=== PATIENT | male | born 1955 | race Caucasian/White ===

== ENCOUNTER → 2020-08-06 | Outpatient (CLI) | payer MEDICARE, BC, OTHER ==
[~2020-08-06] MED LIST: APIX5TAB3 PO; ATOR40TA59 PO; MELO15TA23 PO; SOTA80TA48 PO; TEST5GEL TP
== END ==
LOC: LAB 09:30
PROVIDERS: ATTEND Nurse Anesthetist, Certified Registered
DX: Z01.812 Encounter for preprocedural laboratory examination (principal); Z86.010 Personal history of colon polyps; Z20.828 Contact with and (suspected) exposure to other viral communicable diseases
CPT/HCPCS: U0003

== ENCOUNTER → 2020-08-10 | Day surgery (SDC) | payer MEDICARE, BC, OTHER ==
[~2020-08-10] MED LIST changes: +IPRATRPIUM/ALBUTEROL 0.5/2.5MG 3 ML NEBU. NEB PRN; +IV RINGERS SOLUTION,LACTATED 1,000 ML IV SCH; +LIDOCAINE 2% PF 5 ML VIAL. ONE; +MIDAZOLAM HCL PF 2 MG/2 ML VIAL. IV ONE; +PROPOFOL 10,000 MCG/ML (20ML) VIAL IV ONE
[2020-08-10 08:15] VITALS: BP 121/78
--- NOTE | 2020-08-16 09:06 | PATHOLOGY ---
[facility] Accession Number: [id number] . 01 Material submitted: . colon - RANDOM COLON BIOPSIES . 01 Clinical history: . PREVIOUS HX POLYPS . 02 Diagnosis: Colonic mucosa, random colon biopsies: - No significant pathologic abnormalities. . (JPM:mm; 08/13/2020) [facility] 08/13/2020 1710 Local . 02 Comment: Sections of the random colon biopsy reveal multiple segments of colonic mucosa containing several, focally hyperplastic mucosal-associated lymphoid aggregates. There is no evidence of a chronic destructive colitis, lymphocytic colitis, or collagenous colitis. . (JPM:mml; 08/13/2020) . 02 Electronically signed: . Christiano Plaza MD, Pathologist NPI- [id number] . 01 Gross description: . Received in formalin labeled "Travis Frost, random colon" are multiple coleman-brown soft tissue fragments measuring in aggregate 2.2 x 0.5 x 0.1 cm. The specimen is submitted entirely in A1. ([facility]; 08/12/2020) [facility] 08/12/2020 0943 Local . 02 Pathologist provided ICD-10: Z86.010 . 02 CPT . 396596 Specimen Comment: A courtesy copy of this report has been sent to [phone] Specimen Comment: [phone] Specimen Comment: Report sent to / DR GENAO Performed at: 01 [facility] [address], [place] [id number] MD Ollie Oliva MD Phone: [phone] Performed at: 02 [facility] [address] [place], [place] [id number] MD Christiano Plaza MD Phone: [phone]
== END | disposition home or self-care (01) ==
LOC: SURG 06:33
PROVIDERS: ATTEND Emergency Medicine
DX: Z12.11 Encounter for screening for malignant neoplasm of colon (principal); K63.89 Other specified diseases of intestine; Z86.010 Personal history of colon polyps; Z88.2 Allergy status to sulfonamides; Z79.899 Other long term (current) drug therapy
CPT/HCPCS: 45380; J2001; J2704; J7120